=== PATIENT | female | born 1945 | race Caucasian/White ===

== ENCOUNTER 2016-08-20 09:06 | Emergency (ER) | payer MEDICARE ==
[2016-08-20 10:03] VITALS: BP 143/67
--- NOTE | 2016-08-20 10:43 | UC ---
Lower Extremity/Ankle HPI - HPI Summary HPI Summary: Patient has had sudden onset lower leg pain behind the right knee. denies any trauma to the area, no real increase in size, no redness, patient has a history of smoking, Aortic valve replacement. not on any blood thinners, pain increases with dorsiflexion. - History of Current Complaint Chief Complaint: UCLowerExtremity Stated Complaint: RIGHT LEG COMPLAINT Time Seen by Provider: 08/20/16 10:05 Hx Obtained From: Patient Hx Last Menstrual Period: 1977 ?: No Onset/Duration: Sudden Onset, Lasting Hours Severity Initially: Moderate Severity Currently: Moderate Pain Intensity: 6 Pain Scale Used: 0-10 Numeric Aggravating Factor(s): Standing, Ambulation Alleviating Factor(s): Rest Able to Bear Weight: No - Allergies/Home Medications Allergies/Adverse Reactions: Allergies Allergy/AdvReac Type Severity Reaction Status Date / Time Amoxicillin [From Augmentin] Allergy GI Upset Verified 08/20/16 10:03 Clavulanic Acid Allergy GI Upset Verified 08/20/16 10:03 [From Augmentin] Home Medications: Home Medications Atorvastatin* [Lipitor*] 20 mg PO 1700 08/20/16 [History Confirmed 08/20/16] Biotin 1,000 mcg PO DAILY 08/20/16 [History Confirmed 08/20/16] Fluticasone NASAL SPRAY 50MCG* [Flonase NASAL SPRAY 50MCG*] 2 spray BOTH NARES DAILY 08/20/16 [History Confirmed 08/20/16] PMH/Surg Hx/FS Hx/Imm Hx Previously Healthy: Yes Cardiovascular History Of: Reports: Cardiac Disorders - aortic valve replacement , Hypertension - Surgical History Surgical History: Yes Surgery Procedure, Year, and Place: Aortic valve replacement 03/10/2007, hysterectomy tonsils, cholecystectomy; cataracts 2012 - Family History Known Family History: Positive: Hypertension - Social History Alcohol Use: None Substance Use Type: None Smoking Status (MU): Heavy Every Day Tobacco Smoker Length of Time of Smoking/Using Tobacco: 1 ppd When Did the Patient Quit Smoking/Using Tobacco: started age 19 Review of Systems Constitutional: Negative Skin: Negative Eyes: Negative ENT: Negative Respiratory: Negative Cardiovascular: Negative Gastrointestinal: Negative Genitourinary: Negative Motor: Negative Neurovascular: Negative Musculoskeletal: Arthralgia - right knee, Calf Tenderness - right, Myalgia - right calf Neurological: Negative Psychological: Negative All Other Systems Reviewed And Are Negative: Yes Physical Exam Triage Information Reviewed: Yes Appearance: Well-Appearing, Well-Nourished, Pain Distress Vital Signs: Initial Vital Signs Temp 98.4 F 08/20/16 09:57 Pulse 68 08/20/16 09:57 Resp 14 08/20/16 09:57 BP 143/67 08/20/16 09:57 Pulse Ox 100 08/20/16 09:57 Vital Signs Reviewed: Yes Eye Exam: Normal Eyes: Positive: Conjunctiva Clear ENT Exam: Normal ENT: Positive: Normal ENT inspection, Hearing grossly normal, Pharynx normal, TMs normal Dental Exam: Normal Neck exam: Normal Neck: Positive: Supple, Nontender, No Lymphadenopathy Respiratory Exam: Normal Respiratory: Positive: Chest non-tender, Lungs clear, Normal breath sounds Cardiovascular Exam: Normal Cardiovascular: Positive: RRR, No Murmur, Pulses Normal Abdominal Exam: Normal Abdomen Description: Positive: Nontender, No Organomegaly, Soft Bowel Sounds: Positive: Present Musculoskeletal: Positive: No Edema, Strength Limited @ - unable to bear weight without pain, ROM Limited @ - able to move in full ROM but illicits pain Neurological Exam: Normal Neurological: Positive: Alert, Muscle Tone Normal Psychological Exam: Normal Skin: Positive: Other - multiple varicosities on bothe legs Lower Extremity Course/Dx - Course Course Of Treatment: hx obtained, exam performed, us obtained to r/o DVT, neg for DVT, + for bakers cyst. pain relief and referral to ortho provided. - Differential Dx/Diagnosis Differential Diagnosis/HQI/PQRI: Contusion, DVT, Fracture (Closed), Phlebitis, Sprain, Strain Provider Diagnoses: bakers cyst,. right knee pain Discharge - Discharge Plan Condition: Stable Disposition: HOME Patient Education Materials: Bakers Cyst (ED) Additional Instructions: follow up with Dr Borges now.
--- NOTE | 2016-08-20 10:54 | RAD ---
HISTORY: Pain behind knee, radiating down leg, right leg COMPARISONS: None relevant TECHNIQUE: Multiple transverse and longitudinal ultrasound images were obtained of the right lower extremity from the level of the common femoral vein inferiorly through to the infrapopliteal veins using grayscale, color Doppler, and spectral Doppler imaging with and without compression and with augmentation. Comparison images were obtained of the contralateral common femoral vein. FINDINGS: VEINS: The venous system of the right lower extremity is compressible throughout its course, with normal flow on color Doppler imaging and normal response to augmentation on spectral Doppler imaging. SOFT TISSUES: Unremarkable. OTHER FINDINGS: There is a small amount of fluid within the popliteal fossa measuring 1.3 x 0.4 x 0.6 IMPRESSION: 1. NO RIGHT LOWER EXTREMITY DEEP VEIN THROMBOSIS 2. SMALL AMOUNT OF FLUID WITHIN THE POPLITEAL FOSSA SUGGESTIVE OF A GREEN'S CYST
== END 2016-08-20 11:21 | disposition home or self-care (01) ==
LOC: UCCORT 09:06
DX: M71.21 Synovial cyst of popliteal space [Baker], right knee (principal); F17.210 Nicotine dependence, cigarettes, uncomplicated; Z95.2 Presence of prosthetic heart valve; Z98.49 Cataract extraction status, unspecified eye; Z88.1 Allergy status to other antibiotic agents
CPT/HCPCS: 99211; G0463

== ENCOUNTER 2024-07-22 11:01 | Observation (INO) ==
[~2024-07-22 11:01] MED LIST: Dexamethasone IV 4 MG/ML VIAL 1 ml VIAL ONE; Lidocaine 2% PF 5 ML VIAL ONE; Metoclopramide 5 MG/ML VIAL (10 mg) IV PRN; Midazolam 2 mg/2 ml VIAL 1 mg/ml 2 ml VIAL (2 mg) ONE; NS 0.45% 1000 ml BAG 1,000 ML IV SCH; Naloxone 0.4 mg VIAL 0.4 mg/ml 1 ml VIAL IV PRN; Ondansetron 4 mg VIAL 2 MG/ML 2 ml VIAL IV PRN; Ondansetron 4 mg VIAL 2 MG/ML 2 ml VIAL ONE; Propofol 10 MG/ML 20 ML BTL ONE; ROPIVACAINE 5 MG/ML 30 ML BTL (0.5%) ONE; fentaNYL 100 mcg/2 ml 50 MCG/ML VIAL IV PRN; fentaNYL 100 mcg/2 ml 50 MCG/ML VIAL ONE
[2024-07-22] MEDS ORDERED: ceFAZolin 2 GM PREMIX 2 GM/50 ML BAG ONE (11:23)
[2024-07-22 11:43] LABS: Rapid COVID-19 Molecular Undetected (Undetected)
[2024-07-22] MEDS ORDERED: Tranexamic Acid 1 GM/100ML BAG 2,000 MG/200 ML BAG IV ONE (12:15)
[2024-07-22] MEDS ORDERED: ROPIVACAINE 5 MG/ML 30 ML BTL (0.5%) ONE ×2 (12:39→13:07)
[2024-07-22] MEDS ORDERED: fentaNYL 100 mcg/2 ml 50 MCG/ML VIAL ONE (12:39)
[2024-07-22] MEDS ORDERED: Midazolam 2 mg/2 ml VIAL 1 mg/ml 2 ml VIAL (2 mg) ONE (12:39)
[2024-07-22] MEDS ORDERED: Lidocaine 2% PF 5 ML VIAL ONE (12:40)
[2024-07-22] MEDS ORDERED: HYDROmorphone 0.5 MG/0.5 ML SYRINGE ONE (14:32)
[2024-07-22] MEDS ORDERED: Magnesium Hydroxide LIQ 30 ML UDC PO PRN (16:13)
[2024-07-22] MEDS ORDERED: Morphine 2 MG/ML SYRINGE IV PRN (16:13)
[2024-07-22] MEDS ORDERED: Lactulose 30 ml UDC PO PRN (16:13)
[2024-07-22] MEDS ORDERED: Ondansetron 4 mg VIAL 2 MG/ML 2 ml VIAL IV PRN (16:13)
[2024-07-22] MEDS ORDERED: Ondansetron ODT 4 mg TAB 4 MG TAB PO PRN (16:13)
[2024-07-22] MEDS ORDERED: Calcium Carb (TUMS) 500 mg CHEW TAB PO PRN (16:13)
[2024-07-22] MEDS: Acetaminophen IV 1 GM/100ML 1,000 MG/100 ML BAG IV ONE (17:01)
[2024-07-22] MEDS: Buffered Lidocaine 1% SYRIN 1 ml INTRADERM ONE (17:01)
[2024-07-22] MEDS: Lactated Ringers 1000 ml BAG 1,000 ML IV SCH ×2 (17:02→17:52)
[2024-07-22] MEDS: Scopolamine 1 mg/72hr PATCH TRANSDERM ONE (17:02)
[2024-07-22] MEDS: Magnesium Hydroxide LIQ 30 ML UDC PO SCH (20:25)
[2024-07-22] MEDS: ceFAZolin 2 GM PREMIX 2 GM/50 ML BAG IV SCH (21:58)
[2024-07-23 05:58] LABS: Hematocrit 29.2 % (35-45); Hemoglobin 9.8 g/dL (11.5-14.3); Mean Platelet Volume 7.6 fL (7.5-11.2); Platelet Count 229 10^3/uL (150-450)
[2024-07-23 06:21] LABS: Calcium 8.8 mg/dL (8.6-10.3); Creatinine, Serum 0.97 mg/dL (0.51-0.95); eGFR CKD-EPI 59.8 (>60)
[2024-07-23] MEDS: Vitamin THERAPEUTIC TAB PO SCH (08:34)
[2024-07-23 13:56] VITALS: BP 115/49
[2024-07-23] MEDS: Enoxaparin 40 MG/0.4 ML SYR ONE (14:20)
== END 2024-07-23 15:48 | disposition home or self-care (01) ==
LOC: SSU 11:01 → OR 11:01
PROVIDERS: ADMIT Orthopaedic Surgery Adult Reconstructive Orthopaedic Surgery; ATTEND Orthopaedic Surgery Adult Reconstructive Orthopaedic Surgery